=== PATIENT | male | born 1965 | race Caucasian/White ===

== ENCOUNTER 2018-12-17 14:26 | Emergency (ER) | payer OTHER ==
--- NOTE | 2018-12-17 14:36 | PDOC ---
Rapid Medical Evaluation Chief Complaint: Chest Pain Medical Evaluation: Allergies Allergy/AdvReac Type Severity Reaction Status Date / Time No Known Allergies Allergy Verified 12/17/18 14:33 12/17/18 14:33 I have performed a brief in-person evaluation of this patient. The patient presents with a chief complaint of: CP/ midsternal x 2 hours Pertinent physical exam findings: pale, lungs clear, pulse reg/ 50s I have ordered the following: CBC. CMP, Card profile, EKG, Pt/INR The patient will proceed to the ED for further evaluation. walked into ER. 12/17/18 14:36 Discharge Disposition - Diagnosis Chest pain Qualifiers: Chest pain type: unspecified Qualified Code(s): R07.9 - Chest pain, unspecified - Discharge Dispostion Condition at time of disposition: Stable - Referrals Referrals: Thee Lucero MD [Primary Care Provider] - Arun Jovel MD [Staff Physician] - - Patient Instructions Printed Discharge Instructions: DI for Atypical Chest Pain Additional Instructions: You were seen in the Emergency Department today for evaluation of chest pain. You were given IV fluids and Tylenol. Your labs were negative for evidence of a heart attack and your scan was negative for aortic dissection. Review the handout provided at discharge. Follow up with your primary care physician and Cardiology (a referral was provided). - Post Discharge Activity
[2018-12-17 14:38] VITALS: TEMP 98.5; BMI 29.7
--- NOTE | 2018-12-17 14:51 | PDOC ---
Attending Attestation - Resident Resident Name: Wilder Mathur - ED Attending Attestation I have performed the following: I have examined & evaluated the patient, The case was reviewed & discussed with the resident, I agree w/resident's findings & plan, Exceptions are as noted - HPI HPI: 12/17/18 16:38 Reviewed Residents HPI - Physicial Exam PE: 12/17/18 16:43 Reviewed Residents PE - Medical Decision Making 12/17/18 16:43 53 years old hypertension active tobacco with chest pain that radiates to his epigastrium and arms started 2 hours prior to arrival Nonischemic EKG We'll check cardiac enzymes CTA to rule out dissection observe and reassess 12/17/18 16:44 Dr. Drummond to f/u results and dispo Heart Score/ECG Review - History History: Slightly suspicious - Electrocardiogram EKG: Normal - Age Age: 45-65 - Risk Factors Risk Factors Heart Score: Yes Hx Hypertension, Yes Smoking History Based on the list above the patient has:: 1-2 risk factors - Troponin Troponin: </= normal limit - Score Heart Score - Total: 2 - ECG Impressions Comment:: 12/17/18 16:44 EKG performed at 1441 demonstrates normal sinus rhythm no ST elevations or T- wave inversions. Interpreted by me.
[2018-12-17 15:14] LABS: BASO % 0.4 % (0-2.0); EOS % 1.2 % (0-4.5); HEMATOCRIT 43.8 % (35.4-49); HEMOGLOBIN 15.3 GM/dL (11.7-16.9); LYMPH % 11.9 % (8-40); MCH 32.3 pg (25.7-33.7); MCHC 34.9 g/dl (32.0-35.9); MEAN CELL VOLUME 92.3 fl (80-96); MEAN PLT VOLUME 8.5 fl (7.5-11.1); MONO % 5.4 % (3.8-10.2); NEUT % 81.1 % (42.8-82.8); PLATELET COUNT 258 K/MM3 (134-434); RBC 4.75 M/mm3 (4.00-5.60); RDW 13.5 % (11.9-15.9)
[2018-12-17] MEDS ORDERED: ACETAMINOPHEN 1000 MG/100 ML VIAL (NON FORMULARY) IVPB ONE (15:21)
[2018-12-17] MEDS ORDERED: ACETAMINOPHEN INJECTION 100 ML IVPB ONE (15:23)
[2018-12-17 15:31] LABS: INR 0.97 (0.83-1.09); PROTHROMBIN TIME (PATIENT) 11.4 SEC (9.7-13.0)
[2018-12-17 15:57] LABS: ALBUMIN 4.2 g/dl (3.4-5.0); ALK PHOS 79 U/L (45-117); ANION GAP 6 MMOL/L (8-16); BILIRUBIN,TOTAL 0.2 mg/dL (0.2-1); BLOOD UREA NITROGEN 12 mg/dL (7-18); CALCIUM 9.1 mg/dL (8.5-10.1); CHLORIDE 108 mmol/L (98-107); CO2 26 mmol/L (21-32); CREATININE 1.1 mg/dL (0.55-1.3); GLUCOSE,RANDOM 123 mg/dL (74-106); POTASSIUM 4.1 mmol/L (3.5-5.1); SGOT/AST 22 U/L (15-37); SGPT/ALT 68 U/L (13-61); SODIUM 141 mmol/L (136-145); TOT PROT 7.7 g/dl (6.4-8.2)
--- NOTE | 2018-12-17 16:02 | PDOC ---
History of Present Illness - History of Present Illness Initial Comments: The patient is a 53M w/ a history of HTN and depression who presents for evaluation of 2 hours of chest pressure that radiates to his back. States the pain began at rest, has been constant, and is not exacerbated or alleviated by anything that he can yet identify. He also reports associated sensation of BUE swelling. Denies ever having had this before. Denies fevers/chills, URIOSTEGUI, vision changes, SOB, abdominal pain, N/V/C/D, or changes in sensation 12/17/18 16:00 <Wilder Mathur - Last Filed: 12/17/18 18:59> <Adama Phan - Last Filed: 12/18/18 12:34> - General Chief Complaint: Chest Pain Stated Complaint: CHEST PAIN Time Seen by Provider: 12/17/18 14:48 Past History - Past Medical History COPD: No HTN: Yes - Suicide/Smoking/Psychosocial Hx Smoking History: Former smoker Have you smoked in the past 12 months: No Information on smoking cessation initiated: No <Wilder Mathur - Last Filed: 12/17/18 18:59> <Adama Phan - Last Filed: 12/18/18 12:34> - Past Medical History Allergies/Adverse Reactions: Allergies Allergy/AdvReac Type Severity Reaction Status Date / Time No Known Allergies Allergy Verified 12/17/18 14:33 Home Medications: Ambulatory Orders Losartan/Hydrochlorothiazide [Losartan-Hctz 50-12.5 mg Tab] 1 each PO DAILY Review of Systems - Review of Systems Able to Perform ROS?: Yes Comments:: GENERAL/CONSTITUTIONAL: No fever or chills. No weakness HEAD, EYES, EARS, NOSE AND THROAT: No change in vision. No ear pain or discharge. No sore throat CARDIOVASCULAR: No shortness of breath RESPIRATORY: Denies cough, hemoptysis GASTROINTESTINAL: No nausea, vomiting, diarrhea or constipation GENITOURINARY: No dysuria, frequency, or change in urination MUSCULOSKELETAL: No joint or muscle swelling or pain. No neck or back pain SKIN: No rash NEUROLOGIC: No headache, vertigo, loss of consciousness, or change in strength/ sensation ENDOCRINE: No increased thirst. No abnormal weight change HEMATOLOGIC/LYMPHATIC: No anemia, easy bleeding, or history of blood clots ALLERGIC/IMMUNOLOGIC: No hives or skin allergy 12/17/18 16:51 Is the patient limited Sinhala proficient: No <Wilder Mathur - Last Filed: 12/17/18 18:59> *Physical Exam - Vital Signs Last Vital Signs Temp Pulse Resp BP Pulse Ox 98.5 F 53 L 16 181/91 H 99 12/17/18 14:34 12/17/18 14:34 12/17/18 14:34 12/17/18 14:34 12/17/18 14:34 - Physical Exam Comments: GENERAL: Awake, alert, and fully oriented, in no acute distress HEAD: No signs of trauma, normocephalic, atraumatic EYES: PERRLA, EOMI, sclera anicteric, conjunctiva clear ENT: Hearing grossly normal, nares patent, oropharynx clear without exudates. Moist mucosa LUNGS: No distress, speaks full sentences, clear to auscultation bilaterally HEART: Regular rate and rhythm, normal S1 and S2, no murmurs appreciated, peripheral pulses normal and equal bilaterally ABDOMEN: Soft, nontender, normoactive bowel sounds. No guarding, no rebound EXTREMITIES : Normal inspection, Normal range of motion, no edema. No clubbing or cyanosis NEUROLOGICAL: Cranial nerves II through XII grossly intact. Normal speech, normal gait, no focal sensorimotor deficits SKIN: Warm, Dry 12/17/18 16:52 <Wilder Mathur - Last Filed: 12/17/18 18:59> - Vital Signs Last Vital Signs Temp Pulse Resp BP Pulse Ox 98.5 F 57 L 20 141/87 100 12/17/18 14:34 12/17/18 20:36 12/17/18 20:36 12/17/18 20:36 12/17/18 20:36 <Adama Phan - Last Filed: 12/18/18 12:34> Moderate Sedation - Procedure Monitoring Vital Signs: Procedure Monitoring Vital Signs Temperature 98.5 F 12/17/18 14:34 Pulse Rate 53 L 12/17/18 14:34 Respiratory Rate 16 12/17/18 14:34 Blood Pressure 181/91 H 12/17/18 14:34 O2 Sat by Pulse Oximetry (%) 99 12/17/18 14:34 <Wilder Mathur - Last Filed: 12/17/18 18:59> - Procedure Monitoring Vital Signs: Procedure Monitoring Vital Signs Temperature 98.5 F 12/17/18 14:34 Pulse Rate 57 L 12/17/18 20:36 Respiratory Rate 20 12/17/18 20:36 Blood Pressure 141/87 12/17/18 20:36 O2 Sat by Pulse Oximetry (%) 100 12/17/18 20:36 <Adama Phan - Last Filed: 12/18/18 12:34> ED Treatment Course - LABORATORY CBC & Chemistry Diagram: 12/17/18 15:05 12/17/18 15:05 - ADDITIONAL ORDERS Additional order review: Laboratory Results 12/17/18 12/17/18 12/17/18 15:05 15:05 15:05 PT with INR 11.40 INR 0.97 PTT (Actin FS) 29.6 Sodium 141 Potassium 4.1 Chloride 108 H Carbon Dioxide 26 Anion Gap 6 L BUN 12 Creatinine 1.1 Creat Clearance w eGFR > 60 Random Glucose 123 H Calcium 9.1 Total Bilirubin 0.2 AST 22 ALT 68 H Alkaline Phosphatase 79 Creatine Kinase 116 Troponin I < 0.02 Total Protein 7.7 Albumin 4.2 12/17/18 15:05 RBC 4.75 MCV 92.3 MCHC 34.9 RDW 13.5 MPV 8.5 Neutrophils % 81.1 Lymphocytes % 11.9 Monocytes % 5.4 Eosinophils % 1.2 Basophils % 0.4 - Medications Given in the ED: ED Medications Discontinued Medications Generic Name Dose Route Start Last Admin Trade Name Freq PRN Reason Stop Dose Admin Acetaminophen 1,000 mg 12/17/18 15:21 12/17/18 15:26 Ofirmev Injection - IVPB 12/17/18 15:22 1,000 mg ONCE ONE Administration <Wilder Mathur - Last Filed: 12/17/18 18:59> - LABORATORY CBC & Chemistry Diagram: 12/17/18 15:05 12/17/18 15:05 - ADDITIONAL ORDERS Additional order review: 12/17/18 15:05 RBC 4.75 MCV 92.3 MCHC 34.9 RDW 13.5 MPV 8.5 Neutrophils % 81.1 Lymphocytes % 11.9 Monocytes % 5.4 Eosinophils % 1.2 Basophils % 0.4 - RADIOLOGY Radiology Studies Ordered: Category Date Time Status CHEST X-RAY PORTABLE* [RAD] Stat Radiology 12/17/18 14:55 Taken - Medications Given in the ED: ED Medications Discontinued Medications Generic Name Dose Route Start Last Admin Trade Name Cristhian PRN Reason Stop Dose Admin Acetaminophen 1,000 mg 12/17/18 15:21 12/17/18 15:26 Ofirmev Injection - IVPB 12/17/18 15:22 1,000 mg ONCE ONE Administration Al Hydroxide/Mg Hydroxide 30 ml 12/17/18 18:42 12/17/18 19:57 Mylanta Oral Suspension - PO 12/17/18 18:43 30 ml ONCE ONE Administration Lidocaine HCl 20 ml 12/17/18 18:42 12/17/18 19:57 Xylocaine 2% Viscous Oral - MM 12/17/18 18:43 20 ml ONCE ONE Administration Ranitidine HCl 150 mg 12/17/18 18:42 12/17/18 19:58 Zantac Oral Solution - PO 12/17/18 18:43 150 mg ONCE ONE Administration Sodium Chloride 1,000 ml 12/17/18 16:46 12/17/18 17:16 Normal Saline - IV 12/17/18 16:47 1,000 ml ONCE ONE Administration <Adama Phan - Last Filed: 12/18/18 12:34> Medical Decision Making - Medical Decision Making The patient is a 53M w/ a history of HTN who presents for evaluation of 2 hours of chest pain/pressure that radiates to his back w/ associated BUE swelling sensation ED Course CMP, CBC, Cardiac enzymes CXR, ECG Chest CTA to evaluate for dissection Ofirmev, 1L NS Initial trop I neg Plan for additional trop at 3 hours Lytes wnl No AMANDA LFTs wnl No leukocytosis No anemia 12/17/18 16:52 Second Trop I drawn and sent CTA taken, read pending Reports pain moderately improved 12/17/18 18:33 Patient continues to report mild epigastric discomfort, now more than chest discomfort -GI coctail for symptomatic relief 12/17/18 18:45 I have transferred care of the patient to Dr. Mckeon and discussed the clinical presentation, work-up and ED course thus far 12/17/18 18:58 <Wilder Mathur - Last Filed: 12/17/18 18:59> *DC/Admit/Observation/Transfer - Discharge Dispostion Decision to Admit order: No <Wilder Mathur - Last Filed: 12/17/18 18:59> <Adama Phan - Last Filed: 12/18/18 12:34> Diagnosis at time of Disposition: Chest pain Qualifiers: Chest pain type: unspecified Qualified Code(s): R07.9 - Chest pain, unspecified - Discharge Dispostion Disposition: HOME Condition at time of disposition: Stable - Referrals Referrals: Thee Lucero MD [Primary Care Provider] - Arun Jovel MD [Staff Physician] - - Patient Instructions Printed Discharge Instructions: DI for Atypical Chest Pain Additional Instructions: You were seen in the Emergency Department today for evaluation of chest pain. You were given IV fluids and Tylenol. Your labs were negative for evidence of a heart attack and your scan was negative for aortic dissection. Review the handout provided at discharge. Follow up with your primary care physician and Cardiology (a referral was provided). - Post Discharge Activity
--- NOTE | 2018-12-17 16:36 | EKG ---
Test Reason : Blood Pressure : / mmHG Vent. Rate : 051 BPM Atrial Rate : 051 BPM P-R Int : 176 ms QRS Dur : 090 ms QT Int : 426 ms P-R-T Axes : 044 035 036 degrees QTc Int : 392 ms SINUS BRADYCARDIA OTHERWISE NORMAL ECG NO PREVIOUS ECGS AVAILABLE Confirmed by JULIO CESAR BOWMAN MD ([id number]) on 12/17/2018 4:36:12 PM Referred By: Confirmed By:JULIO CESAR BOWMAN MD
[2018-12-17] MEDS ORDERED: SODIUM CHLORIDE 0.9% 500 ML INFUS.BAG IV ONE (16:46)
[2018-12-17] MEDS ORDERED: LIDOCAINE VISCOUS 2% ORAL/TOP 20 ML UNIT-DOSE CUP MM ONE (18:42)
[2018-12-17] MEDS ORDERED: RANITIDINE HCL 150 MG/10 ML UNIT-DOSE PO ONE (18:42)
[2018-12-17] MEDS ORDERED: MAG HYDROX/AL HYDROX/SIMETH 30 ML UNIT-DOSE CUP PO ONE (18:42)
--- NOTE | 2018-12-17 18:53 | PDOC ---
*Physical Exam - Vital Signs Last Vital Signs Temp Pulse Resp BP Pulse Ox 98.5 F 53 L 16 181/91 H 99 12/17/18 14:34 12/17/18 14:34 12/17/18 14:34 12/17/18 14:34 12/17/18 14:45 - Physical Exam Comments: 12/17/18 18:51 Care endorsed to me by Dr. Mathur at the end of his shift. Patient is a 53 YOM who p/w substernal CP radiating to his back. Just had CTA, pending official radiology reading, second troponin has been sent already and pending results. He had a bit of epigastric discomfort and given GI cocktail, pending re- assessment. ED Treatment Course - LABORATORY CBC & Chemistry Diagram: 12/17/18 15:05 12/17/18 15:05 - ADDITIONAL ORDERS Additional order review: Laboratory Results 12/17/18 12/17/18 12/17/18 15:05 15:05 15:05 PT with INR 11.40 INR 0.97 PTT (Actin FS) 29.6 Sodium 141 Potassium 4.1 Chloride 108 H Carbon Dioxide 26 Anion Gap 6 L BUN 12 Creatinine 1.1 Creat Clearance w eGFR > 60 Random Glucose 123 H Calcium 9.1 Total Bilirubin 0.2 AST 22 ALT 68 H Alkaline Phosphatase 79 Creatine Kinase 116 Troponin I < 0.02 Total Protein 7.7 Albumin 4.2 12/17/18 15:05 RBC 4.75 MCV 92.3 MCHC 34.9 RDW 13.5 MPV 8.5 Neutrophils % 81.1 Lymphocytes % 11.9 Monocytes % 5.4 Eosinophils % 1.2 Basophils % 0.4 - Medications Given in the ED: ED Medications Discontinued Medications Generic Name Dose Route Start Last Admin Trade Name Freq PRN Reason Stop Dose Admin Acetaminophen 1,000 mg 12/17/18 15:21 12/17/18 15:26 Ofirmev Injection - IVPB 12/17/18 15:22 1,000 mg ONCE ONE Administration Sodium Chloride 1,000 ml 12/17/18 16:46 12/17/18 17:16 Normal Saline - IV 12/17/18 16:47 1,000 ml ONCE ONE Administration Medical Decision Making - Medical Decision Making 12/17/18 20:17 Chest CTA: negative for acute pathology. Vital Signs Temperature 98.5 F 12/17/18 14:34 Pulse Rate 53 L 12/17/18 14:34 Respiratory Rate 16 12/17/18 14:34 Blood Pressure 181/91 H 12/17/18 14:34 O2 Sat by Pulse Oximetry (%) 99 12/17/18 14:45 Repeat cardiac enzymes are negative. 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 On last reassessment VS are stable, Pts pain is resolved, and exam is benign. The Pt is appropriate for discharge with close outpatient follow up. They are comfortable with this plan and will follow up with their primary care provider in 1-3 days. Specific return precautions are discussed and they will come back to the ER if necessary. *DC/Admit/Observation/Transfer Diagnosis at time of Disposition: Chest pain Qualifiers: Chest pain type: unspecified Qualified Code(s): R07.9 - Chest pain, unspecified - Discharge Dispostion Disposition: HOME Condition at time of disposition: Stable Decision to Admit order: No - Referrals Referrals: Thee Lucero MD [Primary Care Provider] - Arun Jovel MD [Staff Physician] - - Patient Instructions Printed Discharge Instructions: DI for Atypical Chest Pain Additional Instructions: You were seen in the Emergency Department today for evaluation of chest pain. You were given IV fluids and Tylenol. Your labs were negative for evidence of a heart attack and your scan was negative for aortic dissection. Review the handout provided at discharge. Follow up with your primary care physician and Cardiology (a referral was provided). - Post Discharge Activity
[2018-12-17] MEDS ORDERED: LIDOCAINE VISCOUS 2% ORAL/TOP 20 ML UNIT-DOSE CUP ONE (19:52)
[2018-12-17] MEDS ORDERED: MAG HYDROX/AL HYDROX/SIMETH 30 ML UNIT-DOSE CUP ONE (19:52)
[2018-12-17 20:47] VITALS: BP 141/87; PULSE 57
== END 2018-12-17 21:00 | disposition home or self-care (01) ==
LOC: JER 14:26
PROC: 3E033NZ Introduction of Analgesics, Hypnotics, Sedatives into Peripheral Vein, Percutaneous Approach (ICD-10-PCS; principal; 2018-12-17)
PROC: 3E0337Z Introduction of Electrolytic and Water Balance Substance into Peripheral Vein, Percutaneous Approach (ICD-10-PCS; 2018-12-17)
DX: R07.9 Chest pain, unspecified (principal)
CPT/HCPCS: 36415; 71045-TC-FY; 71275-TC; 80053; 82550; 84484; 85025; 85610; 85730; 93005; 93010; 99285-25; J0131

== ENCOUNTER 2019-01-22 10:18 | Emergency (ER) | payer OTHER ==
[2019-01-22 10:27] VITALS: BP 138/90; PULSE 75; TEMP 97.5; BMI 31.0
[2019-01-22] MEDS ORDERED: KETOROLAC TROMETHAMINE 60 MG/2 ML VIAL IM ONE (11:19)
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
[2019-01-22] MEDS ORDERED: KETOROLAC TROMETHAMINE 60 MG/2 ML VIAL ONE (11:24)
== END 2019-01-22 12:12 | disposition home or self-care (01) ==
LOC: JERFT 10:18
PROC: 3E0233Z Introduction of Anti-inflammatory into Muscle, Percutaneous Approach (ICD-10-PCS; principal; 2019-01-22)
DX: M62.838 Other muscle spasm (principal); V49.49XA Driver injured in collision with other motor vehicles in traffic accident, initial encounter; Y92.488 Other paved roadways as the place of occurrence of the external cause; Y93.89 Activity, other specified; Y99.8 Other external cause status
CPT/HCPCS: 99281-25

== ENCOUNTER 2022-05-26 23:12 | Emergency (ER) | payer OTHER ==
[2022-05-26 23:22] VITALS: BP 112/72; PULSE 69; TEMP 98.3; BMI 30.5
[2022-05-27] MEDS ORDERED: IBUPROFEN 600 MG TABLET (FP) PO ONE ×2 (01:11→01:19)
[2022-05-27] MEDS ORDERED: BACITRACIN 0.9 GM PACKET ONE (03:26)
== END 2022-05-27 03:32 | disposition home or self-care (01) ==
LOC: JER 23:12
PROC: 0H9GXZZ Drainage of Left Hand Skin, External Approach (ICD-10-PCS; principal; 2022-05-26)
DX: L03.012 Cellulitis of left finger (principal)
CPT/HCPCS: 73140-TC-LT-FY; 99283-25